=== PATIENT | female | born 1965 | race Caucasian/White ===

== ENCOUNTER → 2017-10-04 | Outpatient (CLI) | payer OTHER ==
[~2017-10-04] MED LIST: CEPHALEXIN 500500 M2 PO; DOXYCYCLINE 10100 M1; GLUCOPHAGE1000 MG; MOBIC; PERCOCET 5-3251 EACH PO; TRAMADOL; ZOCOR 10 MG TAB10 MG
--- NOTE | 2017-10-05 11:15 | PF ---
[address] [address] PULMONARY FUNCTION REPORT Name: HERSON RUIZ Room: [facility]#: [id number] Admission: 10/04/17 Attend Phys: Ernie Cabrera, Discharge: Date of : 67 Report #: [id number] THIS REPORT FOR: //name// CC: Jacque Cabrera SPIROMETRY: The FEV1/FVC ratio 86%. The FEV1 postbronchodilator was 2.62 liters at 85% predicted. The forced vital capacity 3.03 liters, 78% predicted. LUNG VOLUMES: Total lung capacity was 80% predicted at 4.34 liters. DIFFUSION: The DLCO was 72% predicted. IMPRESSION: The above pulmonary function test did not show definite obstructive or restrictive pulmonary defect. <ELECTRONICALLY SIGNED> By: Anshul Soto MD 10/05/17 1115 [id number] Soto MD /nt
== END ==
LOC: M.PUL 09:51
DX: J44.9 Chronic obstructive pulmonary disease, unspecified (principal)